=== PATIENT | male | born 1965 | race Caucasian/White ===

== ENCOUNTER 2018-12-06 17:03 | Inpatient (IN) | payer SELFPAY ==
[~2018-12-06] VITALS: Ht 190.5 cm; Wt 126.6 kg
[~2018-12-06 17:03] MED LIST: BUPIVACAINE /PF 0.75% 10 ML VIAL INJ ONE; MIDAZOLAM HCL 5 MG/5 ML VIAL IVP ONE; MORPHINE SULFATE 10MG/10ML PF AMP EP ONE; NS 1000 ML IV.SOLN IV ONE; NS IRRIG SOLN 1000 ML IR ONE
[2018-12-06 17:20] VITALS: BP_SYST 205
[2018-12-06] MEDS ORDERED: INSULIN REGULAR, HUMAN 10 UNITS/0.1 ML INJ IVP ONE (18:15)
[2018-12-06] MEDS ORDERED: NS 1000 ML IV.SOLN IV ONE (18:15)
[2018-12-06] MEDS ORDERED: cefTRIAXone 1 GM in LIDOCAINE 1%, 20 ML MDV 2.1 ML IM ONE (18:30)
[2018-12-06] MEDS ORDERED: metroNIDAZOLE 500 mg/NS 100 ML IV ONE (18:30)
[2018-12-06 18:36] LABS: HEMOGLOBIN 14.1 g/dL (14.0-18.0); MEAN CORPUSCULAR HEMOGLOBIN 30 pg (27-31); MEAN CORPUSCULAR HGB CONC 34 % (32-36); MEAN CORPUSCULAR VOLUME 89 fL (79.0-98.0); PLATELET COUNT (AUTO) 414 K/uL (130-430); RED CELL DISTRIBUTION WIDTH 12.5 % (9.0-15.0); WHITE BLOOD COUNT (AUTO) 14.3 K/uL (4.8-10.8)
[2018-12-06 18:37] LABS: BASOPHILS # (AUTO) 0.1 K/uL (0.0-0.2); BASOPHILS % (AUTO) 0.8 % (0.0-2.0); EOSINOPHILS # (AUTO) 0.1 K/uL (0.0-0.4); EOSINOPHILS % (AUTO) 0.9 % (0.0-4.0); LYMPHOCYTES # (AUTO) 1.8 K/uL (1.0-5.5); LYMPHOCYTES % (AUTO) 12.8 % (20.5-51.5); MONOCYTES # (AUTO) 1.2 K/uL (0.0-1.0); MONOCYTES % (AUTO) 8.3 % (1.7-9.3); NEUTROPHILS # (AUTO) 11.1 K/uL (1.8-7.7); NEUTROPHILS % (AUTO) 77.2 % (40.0-70.0)
[2018-12-06] MEDS ORDERED: cefTRIAXone 1 GM IVPB PREMIX 50 ML IV ONE (19:00)
[2018-12-06 19:15] LABS: CALCIUM 9.8 mg/dL (8.4-11.0); CREATININE 1.01 mg/dL (0.55-1.30); POTASSIUM 4.5 mmol/L (3.5-5.1)
[2018-12-06 19:25] LABS: INR 0.9 (0.80-1.20); PROTHROMBIN TIME 9.4 SECS (9.5-12.5)
[2018-12-06 19:30] LABS: ALBUMIN 2.6 g/dL (3.4-4.8); TOTAL BILIRUBIN 0.4 mg/dL (0.0-1.0)
[2018-12-06 20:54] LABS: BILIRUBIN,URINE NEGATIVE (NEGATIVE); CLARITY/URINE CLEAR (CLEAR); COLOR,URINE YELLOW (YELLOW); GLUCOSE,URINE 3+ (NEGATIVE); KETONES,URINE 2+ (NEGATIVE); LEUKOCYTE ESTERASE ,URINE NEGATIVE (NEGATIVE); NITRITE, URINE NEGATIVE (NEGATIVE); PROTEIN URINE 1+ (NEGATIVE); UROBILINOGEN,URINE 0.2 (0.2-1.0)
[2018-12-06 20:56] LABS: BLOOD, URINE TRACE (NEGATIVE)
[2018-12-06 21:06] LABS: BACTERIA,URINE FEW /HPF (None Seen); MUCUS,URINE None Seen /LPF (None Seen); RBC,URINE 0-3 /HPF (0-3); WBC,URINE 0-3 /HPF (0-3)
[2018-12-06 22:37] VITALS: BP_SYST 165
[2018-12-06] MEDS ORDERED: D5W 1,000 ML IV PRN (22:47)
[2018-12-06] MEDS ORDERED: DEXTROSE 50% JECT 50 ML DISP.SYRIN IVP PRN (23:00)
[2018-12-06] MEDS ORDERED: GLUCOSE 15 GM GEL (in 37.5 GM TUBE) PO PRN (23:00)
[2018-12-06] MEDS ORDERED: HYDROcodone/ACETAMIN 10-325 MG TAB PO PRN (23:00)
[2018-12-06] MEDS ORDERED: LORazepam 2 MG/ML VIAL IVP PRN (23:00)
[2018-12-07] MEDS: ACETAMINOPHEN 325 MG TABLET PO PRN ×5 (00:59→22:04)
[2018-12-07] MEDS: NORMAL SALINE 5 ML DISP.SYRIN IVF SCH ×3 (06:15→22:04)
[2018-12-07] MEDS: INSULIN REGULAR, HUMAN 100 UNITS/ML, 10 ML VIAL (novoLIN R) SUBCUT PRN ×4 (06:20→22:18)
[2018-12-07 06:48] LABS: CALCIUM 8.4 mg/dL (8.4-11.0); CREATININE 0.91 mg/dL (0.55-1.30); POTASSIUM 4.3 mmol/L (3.5-5.1)
[2018-12-07 06:58] LABS: ALBUMIN 2.1 g/dL (3.4-4.8); PHOSPHORUS 3.1 mg/dL (2.7-4.5); TOTAL BILIRUBIN 0.5 mg/dL (0.0-1.0)
[2018-12-07 07:53] LABS: HEMATOCRIT 37.2 % (36-54); HEMOGLOBIN 12.4 g/dL (14.0-18.0); MEAN CORPUSCULAR HEMOGLOBIN 30 pg (27-31); MEAN CORPUSCULAR VOLUME 89 fL (79.0-98.0); RED BLOOD CELL COUNT(AUTO) 4.17 MIL/uL (4.2-6.2); WHITE BLOOD COUNT (AUTO) 12.9 K/uL (4.8-10.8)
[2018-12-07 07:54] LABS: BASOPHILS % (AUTO) 0.4 % (0.0-2.0); EOSINOPHILS # (AUTO) 0.1 K/uL (0.0-0.4); EOSINOPHILS % (AUTO) 0.6 % (0.0-4.0); LYMPHOCYTES # (AUTO) 1.4 K/uL (1.0-5.5); LYMPHOCYTES % (AUTO) 10.5 % (20.5-51.5); MEAN CORPUSCULAR HGB CONC 33 % (32-36); MONOCYTES # (AUTO) 1.1 K/uL (0.0-1.0); MONOCYTES % (AUTO) 8.2 % (1.7-9.3); NEUTROPHILS # (AUTO) 10.4 K/uL (1.8-7.7); NEUTROPHILS % (AUTO) 80.3 % (40.0-70.0); PLATELET COUNT (AUTO) 376 K/uL (130-430); RED CELL DISTRIBUTION WIDTH 12.5 % (9.0-15.0)
[2018-12-07 08:00] VITALS: BP_SYST 167
[2018-12-07] MEDS ORDERED: METOPROLOL SUCCINATE 25 MG TAB.SR.24H (TOPROL XL) PO ONE (09:30)
[2018-12-07 12:50] VITALS: BP_SYST 164
[2018-12-07 12:55] VITALS: BP_SYST 163
[2018-12-07] MEDS: HYDROCHLOROTHIAZIDE 25 MG TABLET (HCTZ) PO SCH (13:00)
[2018-12-07] MEDS ORDERED: HYDROCHLOROTHIAZIDE 25 MG TABLET (HCTZ) PO ONE (14:00)
[2018-12-07] MEDS ORDERED: DIATR MEGLU/DIATRIZ SOD 30 ML SOLUTION PO ONE (15:16)
[2018-12-07 16:39] VITALS: BP_SYST 160
[2018-12-07] MEDS: cefTRIAXone 1 GM IVPB PREMIX 50 ML IV SCH (17:33)
[2018-12-07] MEDS: VANCOMYCIN HCL 1,500 MG in NS 500 ML IV SCH ×2 (18:30→23:42)
[2018-12-07 20:20] VITALS: BP_SYST 164
[2018-12-07] MEDS: METOPROLOL SUCCINATE 25 MG TAB.SR.24H (TOPROL XL) PO SCH (22:03)
[2018-12-07] MEDS: cloNIDine HCL 0.1 MG TABLET PO PRN (23:41)
[2018-12-07 23:42] VITALS: BP_SYST 162
[2018-12-08] VITALS (7 sets, daily range): BP systolic 131–165
[2018-12-08] MEDS: ACETAMINOPHEN 325 MG TABLET PO PRN ×4 (03:16→22:15)
[2018-12-08] MEDS: NORMAL SALINE 5 ML DISP.SYRIN IVF SCH ×3 (06:33→21:06)
[2018-12-08] MEDS: INSULIN REGULAR, HUMAN 100 UNITS/ML, 10 ML VIAL (novoLIN R) SUBCUT PRN ×4 (06:33→20:57)
[2018-12-08 06:47] LABS: CALCIUM 8.5 mg/dL (8.4-11.0); CREATININE 0.91 mg/dL (0.55-1.30); POTASSIUM 3.8 mmol/L (3.5-5.1); TOTAL BILIRUBIN 0.4 mg/dL (0.0-1.0); VANCOMYCIN,TROUGH 20.6 ug/mL (5.0-10.0)
[2018-12-08 07:08] LABS: C-REACTIVE PROTEIN QUANT 22.6 mg/dL (0-0.5)
[2018-12-08 07:32] LABS: BASOPHILS % (AUTO) 0.5 % (0.0-2.0); EOSINOPHILS % (AUTO) 0.8 % (0.0-4.0); HEMATOCRIT 37.5 % (36-54); HEMOGLOBIN 12.8 g/dL (14.0-18.0); LYMPHOCYTES # (AUTO) 1.6 K/uL (1.0-5.5); LYMPHOCYTES % (AUTO) 11.5 % (20.5-51.5); MEAN CORPUSCULAR HEMOGLOBIN 30 pg (27-31); MEAN CORPUSCULAR HGB CONC 34 % (32-36); MEAN CORPUSCULAR VOLUME 88 fL (79.0-98.0); MONOCYTES % (AUTO) 8.1 % (1.7-9.3); NEUTROPHILS # (AUTO) 11.1 K/uL (1.8-7.7); NEUTROPHILS % (AUTO) 79.1 % (40.0-70.0); PLATELET COUNT (AUTO) 384 K/uL (130-430); RED BLOOD CELL COUNT(AUTO) 4.27 MIL/uL (4.2-6.2); RED CELL DISTRIBUTION WIDTH 12.5 % (9.0-15.0); WHITE BLOOD COUNT (AUTO) 14.1 K/uL (4.8-10.8)
[2018-12-08 07:33] LABS: BASOPHILS # (AUTO) 0.1 K/uL (0.0-0.2); EOSINOPHILS # (AUTO) 0.1 K/uL (0.0-0.4); MONOCYTES # (AUTO) 1.1 K/uL (0.0-1.0)
[2018-12-08] MEDS ORDERED: NACL 0.9% 1,000 ML IV ONE (08:15)
[2018-12-08] MEDS: METOPROLOL SUCCINATE 25 MG TAB.SR.24H (TOPROL XL) PO SCH ×2 (08:23→20:50)
[2018-12-08] MEDS: HYDROCHLOROTHIAZIDE 25 MG TABLET (HCTZ) PO SCH (08:24)
[2018-12-08 08:53] LABS: ERYTHROCYTE SEDIMENTATION RATE 92 MM/HR (0-15)
[2018-12-08] MEDS ORDERED: metFORMIN HCL 500 MG TABLET PO ONE (09:00)
[2018-12-08] MEDS: PIOGLITAZONE HCL 15 MG TABLET PO SCH (09:44)
[2018-12-08] MEDS: VANCOMYCIN HCL 1,500 MG in NS 500 ML IV SCH ×3 (10:07→23:56)
[2018-12-08] MEDS: cloNIDine HCL 0.1 MG TABLET PO PRN (11:56)
[2018-12-08] MEDS: cefTRIAXone 1 GM IVPB PREMIX 50 ML IV SCH (17:00)
[2018-12-08] MEDS: metFORMIN HCL 500 MG TABLET PO SCH (17:00)
[2018-12-08] MEDS ORDERED: 0.45% NS 250 ML IV ONE (18:45)
[2018-12-08] MEDS: LISINOPRIL 10 MG TABLET (PRINIVIL) PO SCH (20:51)
[2018-12-08] MEDS: INSULIN GLARGINE 100 UNITS/ML 10 ML VIAL SUBCUT SCH ×2 (20:55→21:00)
[2018-12-09] MEDS: ACETAMINOPHEN 325 MG TABLET PO PRN (04:28)
[2018-12-09] MEDS: NORMAL SALINE 5 ML DISP.SYRIN IVF SCH ×2 (06:29→14:00)
[2018-12-09] MEDS: INSULIN REGULAR, HUMAN 100 UNITS/ML, 10 ML VIAL (novoLIN R) SUBCUT PRN ×5 (06:35→20:13)
[2018-12-09 07:13] LABS: CALCIUM 8.4 mg/dL (8.4-11.0); CREATININE 0.93 mg/dL (0.55-1.30); POTASSIUM 3.6 mmol/L (3.5-5.1)
[2018-12-09 07:38] LABS: HEMATOCRIT 36.4 % (36-54); HEMOGLOBIN 12.5 g/dL (14.0-18.0); RED BLOOD CELL COUNT(AUTO) 4.15 MIL/uL (4.2-6.2); WHITE BLOOD COUNT (AUTO) 12.7 K/uL (4.8-10.8)
[2018-12-09 07:39] LABS: BASOPHILS # (AUTO) 0.1 K/uL (0.0-0.2); BASOPHILS % (AUTO) 0.5 % (0.0-2.0); EOSINOPHILS # (AUTO) 0.2 K/uL (0.0-0.4); EOSINOPHILS % (AUTO) 1.4 % (0.0-4.0); LYMPHOCYTES # (AUTO) 1.9 K/uL (1.0-5.5); LYMPHOCYTES % (AUTO) 15.2 % (20.5-51.5); MEAN CORPUSCULAR HEMOGLOBIN 30 pg (27-31); MEAN CORPUSCULAR HGB CONC 34 % (32-36); MEAN CORPUSCULAR VOLUME 88 fL (79.0-98.0); MONOCYTES # (AUTO) 0.9 K/uL (0.0-1.0); MONOCYTES % (AUTO) 7.5 % (1.7-9.3); NEUTROPHILS # (AUTO) 9.5 K/uL (1.8-7.7); NEUTROPHILS % (AUTO) 75.4 % (40.0-70.0); PLATELET COUNT (AUTO) 385 K/uL (130-430); RED CELL DISTRIBUTION WIDTH 12.8 % (9.0-15.0)
[2018-12-09 07:40] LABS: C-REACTIVE PROTEIN QUANT 15.4 mg/dL (0-0.5)
[2018-12-09] MEDS: VANCOMYCIN HCL 1,500 MG in NS 500 ML IV SCH ×2 (07:59→16:09)
[2018-12-09] MEDS: metFORMIN HCL 500 MG TABLET PO SCH ×2 (08:00→17:30)
[2018-12-09] MEDS: PIOGLITAZONE HCL 15 MG TABLET PO SCH (08:03)
[2018-12-09] MEDS: HYDROCHLOROTHIAZIDE 25 MG TABLET (HCTZ) PO SCH ×2 (08:04→08:06)
[2018-12-09] MEDS: LISINOPRIL 10 MG TABLET (PRINIVIL) PO SCH ×2 (08:04→08:13)
[2018-12-09] MEDS: METOPROLOL SUCCINATE 25 MG TAB.SR.24H (TOPROL XL) PO SCH ×2 (08:12→20:16)
[2018-12-09] MEDS: INSULIN GLARGINE 100 UNITS/ML 10 ML VIAL SUBCUT SCH (08:13)
[2018-12-09 09:11] LABS: ERYTHROCYTE SEDIMENTATION RATE 91 MM/HR (0-15)
[2018-12-09 12:07] VITALS: BP_SYST 157
[2018-12-09] MEDS ORDERED: DIPHENHYDRAMINE INJ 50 MG/ML VIAL IVP PRN (13:00)
[2018-12-09] MEDS ORDERED: ONDANSETRON HCL 4 MG/2 ML VIAL IVP PRN ×2 (13:00)
[2018-12-09] MEDS ORDERED: KETOROLAC TROMETHAMINE 60 MG/2 ML VIAL IM PRN (13:00)
[2018-12-09] MEDS ORDERED: NALOXONE HCL 0.4 MG/ML AMP (NARCAN) IVP PRN ×2 (13:00)
[2018-12-09] MEDS ORDERED: NALBUPHINE HCL 10 MG/ML AMP IVP PRN (13:00)
[2018-12-09] MEDS ORDERED: fentaNYL CITRATE/PF 100 MCG/2 ML AMP IVP PRN ×2 (13:00)
[2018-12-09] MEDS ORDERED: MORPHINE SULFATE 10MG/10ML PF AMP SP SCH (13:00)
[2018-12-09] MEDS ORDERED: INSULIN REGULAR, HUMAN 100 UNITS/ML, 10 ML VIAL IVP ONE (13:30)
[2018-12-09] MEDS ORDERED: INSULIN REGULAR, HUMAN 100 UNITS/ML, 10 ML VIAL SUBCUT ONE (13:30)
[2018-12-09 13:50] VITALS: BP_SYST 111
[2018-12-09 14:00] VITALS: BP_SYST 111
[2018-12-09 15:40] VITALS: BP_SYST 132
[2018-12-09] MEDS: INSULIN Aspart Prota/Aspar MIX 70-30, 100 UNITS/ML, 10 ML VIAL SUBCUT SCH (17:39)
[2018-12-09 19:10] VITALS: BP_SYST 138
[2018-12-09] MEDS: cefTRIAXone 1 GM IVPB PREMIX 50 ML IV SCH (20:02)
[2018-12-09 23:31] VITALS: BP_SYST 146
[2018-12-10] MEDS: VANCOMYCIN HCL 1,500 MG in NS 500 ML IV SCH ×2
[2018-12-10] MEDS: NORMAL SALINE 5 ML DISP.SYRIN IVF SCH ×4 (00:01→22:17)
[2018-12-10] MEDS: INSULIN REGULAR, HUMAN 100 UNITS/ML, 10 ML VIAL (novoLIN R) SUBCUT PRN ×2 (06:07→12:18)
[2018-12-10] MEDS: INSULIN Aspart Prota/Aspar MIX 70-30, 100 UNITS/ML, 10 ML VIAL SUBCUT SCH (06:09)
[2018-12-10 07:20] LABS: POTASSIUM 3.7 mmol/L (3.5-5.1)
[2018-12-10 07:21] LABS: ALBUMIN 1.9 g/dL (3.4-4.8); CALCIUM 8.3 mg/dL (8.4-11.0); CREATININE 0.96 mg/dL (0.55-1.30); HEMATOCRIT 37.4 % (36-54); HEMOGLOBIN 12.6 g/dL (14.0-18.0); RED BLOOD CELL COUNT(AUTO) 4.26 MIL/uL (4.2-6.2); TOTAL BILIRUBIN 0.4 mg/dL (0.0-1.0); WHITE BLOOD COUNT (AUTO) 15.1 K/uL (4.8-10.8)
[2018-12-10 07:22] LABS: C-REACTIVE PROTEIN QUANT 12.1 mg/dL (0-0.5); EOSINOPHILS % (AUTO) 0.8 % (0.0-4.0); LYMPHOCYTES % (AUTO) 11.3 % (20.5-51.5); MEAN CORPUSCULAR HEMOGLOBIN 30 pg (27-31); MEAN CORPUSCULAR HGB CONC 34 % (32-36); MEAN CORPUSCULAR VOLUME 88 fL (79.0-98.0); MONOCYTES % (AUTO) 7.6 % (1.7-9.3); NEUTROPHILS % (AUTO) 79.7 % (40.0-70.0); PLATELET COUNT (AUTO) 412 K/uL (130-430); RED CELL DISTRIBUTION WIDTH 12.6 % (9.0-15.0)
[2018-12-10 07:23] LABS: BASOPHILS % (AUTO) 0.6 % (0.0-2.0)
[2018-12-10 07:25] LABS: BASOPHILS # (AUTO) 0.1 K/uL (0.0-0.2); EOSINOPHILS # (AUTO) 0.1 K/uL (0.0-0.4); LYMPHOCYTES # (AUTO) 1.7 K/uL (1.0-5.5); MONOCYTES # (AUTO) 1.1 K/uL (0.0-1.0)
[2018-12-10 07:55] VITALS: BP_SYST 141
[2018-12-10] MEDS: PIOGLITAZONE HCL 15 MG TABLET PO SCH (08:36)
[2018-12-10] MEDS: HYDROCHLOROTHIAZIDE 25 MG TABLET (HCTZ) PO SCH (08:37)
[2018-12-10] MEDS: LISINOPRIL 10 MG TABLET (PRINIVIL) PO SCH (08:37)
[2018-12-10] MEDS: metFORMIN HCL 500 MG TABLET PO SCH ×2 (08:38→17:39)
[2018-12-10] MEDS: METOPROLOL SUCCINATE 25 MG TAB.SR.24H (TOPROL XL) PO SCH ×2 (08:39→22:10)
[2018-12-10] MEDS: VANCOMYCIN HCL 1,500 MG in NS 250 ML IV SCH ×3 (08:40→23:11)
[2018-12-10 09:33] LABS: ERYTHROCYTE SEDIMENTATION RATE 91 MM/HR (0-15)
[2018-12-10 12:36] VITALS: BP_SYST 136
[2018-12-10] MEDS: ACETAMINOPHEN 325 MG TABLET PO PRN (13:30)
[2018-12-10] MEDS ORDERED: DEXTROSE 50% JECT 50 ML DISP.SYRIN IVP PRN (15:30)
[2018-12-10 16:13] VITALS: BP_SYST 125
[2018-12-10] MEDS: INSULIN LISPRO SLIDING SCALE 100 UNITS/ML VIAL (humaLOG) SUBCUT PRN ×2 (17:53→22:17)
[2018-12-10] MEDS: cefTRIAXone 1 GM IVPB PREMIX 50 ML IV SCH (18:28)
[2018-12-10] MEDS ORDERED: INSULIN NPH/REGULAR 70-30, 100 UNITS/ML, 10 ML VIAL SUBCUT ONE (18:45)
[2018-12-10] MEDS: HYDROcodone/ACETAMIN 5-325 MG TAB (NORCO/ VICODIN) PO PRN ×2 (19:06→23:11)
[2018-12-10 20:08] VITALS: BP_SYST 137
[2018-12-11 01:01] VITALS: BP_SYST 121
[2018-12-11] MEDS: HYDROcodone/ACETAMIN 5-325 MG TAB (NORCO/ VICODIN) PO PRN ×2 (03:25→08:22)
[2018-12-11] MEDS: NORMAL SALINE 5 ML DISP.SYRIN IVF SCH ×3 (06:39→21:36)
[2018-12-11] MEDS: INSULIN LISPRO SLIDING SCALE 100 UNITS/ML VIAL (humaLOG) SUBCUT PRN ×4 (06:43→21:36)
[2018-12-11] MEDS ORDERED: INSULIN NPH/REGULAR 70-30, 100 UNITS/ML, 10 ML VIAL SUBCUT SCH (07:00)
[2018-12-11 07:01] LABS: MEAN CORPUSCULAR HEMOGLOBIN 30 pg (27-31); MEAN CORPUSCULAR HGB CONC 34 % (32-36); MEAN CORPUSCULAR VOLUME 88 fL (79.0-98.0); WHITE BLOOD COUNT (AUTO) 10.5 K/uL (4.8-10.8)
[2018-12-11 07:02] LABS: PLATELET COUNT (AUTO) 405 K/uL (130-430); RED CELL DISTRIBUTION WIDTH 12.5 % (9.0-15.0)
[2018-12-11 07:03] LABS: CALCIUM 8.6 mg/dL (8.4-11.0); CREATININE 0.92 mg/dL (0.55-1.30); POTASSIUM 3.4 mmol/L (3.5-5.1)
[2018-12-11 07:05] LABS: BASOPHILS % (AUTO) 0.6 % (0.0-2.0); EOSINOPHILS % (AUTO) 1.9 % (0.0-4.0); LYMPHOCYTES % (AUTO) 16.4 % (20.5-51.5); MONOCYTES % (AUTO) 9.6 % (1.7-9.3); NEUTROPHILS % (AUTO) 71.5 % (40.0-70.0)
[2018-12-11 07:06] LABS: LYMPHOCYTES # (AUTO) 1.7 K/uL (1.0-5.5); NEUTROPHILS # (AUTO) 7.5 K/uL (1.8-7.7)
[2018-12-11 07:07] LABS: BASOPHILS # (AUTO) 0.1 K/uL (0.0-0.2); EOSINOPHILS # (AUTO) 0.2 K/uL (0.0-0.4)
[2018-12-11 07:16] LABS: C-REACTIVE PROTEIN QUANT 13.2 mg/dL (0-0.5)
[2018-12-11 07:28] VITALS: BP_SYST 151
[2018-12-11 07:52] VITALS: BP_SYST 151
[2018-12-11 08:01] LABS: ERYTHROCYTE SEDIMENTATION RATE 95 MM/HR (0-15)
[2018-12-11] MEDS: metFORMIN HCL 500 MG TABLET PO SCH ×2 (08:06→17:45)
[2018-12-11] MEDS: VANCOMYCIN HCL 1,500 MG in NS 250 ML IV SCH ×2 (08:07→16:34)
[2018-12-11] MEDS: PIOGLITAZONE HCL 15 MG TABLET PO SCH (09:58)
[2018-12-11] MEDS: HYDROCHLOROTHIAZIDE 25 MG TABLET (HCTZ) PO SCH (09:59)
[2018-12-11] MEDS: LISINOPRIL 10 MG TABLET (PRINIVIL) PO SCH (10:00)
[2018-12-11] MEDS: METOPROLOL SUCCINATE 25 MG TAB.SR.24H (TOPROL XL) PO SCH ×2 (10:00→21:24)
[2018-12-11 12:01] VITALS: BP_SYST 137
[2018-12-11] MEDS ORDERED: POTASSIUM CHLORIDE 20 MEQ TAB.PRT.SR PO ONE (12:15)
[2018-12-11] MEDS: cefTRIAXone 1 GM IVPB PREMIX 50 ML IV SCH (17:46)
[2018-12-11] MEDS: INSULIN NPH/REGULAR 70-30, 100 UNITS/ML, 10 ML VIAL SUBCUT SCH (17:50)
[2018-12-11 18:00] VITALS: BP_SYST 142
[2018-12-11 20:00] VITALS: BP_SYST 140
[2018-12-11] MEDS: VANCOMYCIN HCL 2,000 MG in NS 500 ML IV SCH (21:25)
[2018-12-12 00:27] VITALS: BP_SYST 148
[2018-12-12] MEDS: HYDROcodone/ACETAMIN 5-325 MG TAB (NORCO/ VICODIN) PO PRN ×2 (04:56→09:56)
[2018-12-12] MEDS: INSULIN LISPRO SLIDING SCALE 100 UNITS/ML VIAL (humaLOG) SUBCUT PRN ×3 (06:09→21:00)
[2018-12-12] MEDS: INSULIN NPH/REGULAR 70-30, 100 UNITS/ML, 10 ML VIAL SUBCUT SCH ×2 (06:11→17:22)
[2018-12-12] MEDS: NORMAL SALINE 5 ML DISP.SYRIN IVF SCH ×3 (06:11→21:01)
[2018-12-12 06:53] LABS: C-REACTIVE PROTEIN QUANT 7.8 mg/dL (0-0.5); CALCIUM 8.6 mg/dL (8.4-11.0); CREATININE 0.97 mg/dL (0.55-1.30); POTASSIUM 3.2 mmol/L (3.5-5.1)
[2018-12-12 07:42] LABS: HEMATOCRIT 35.9 % (36-54); HEMOGLOBIN 12.4 g/dL (14.0-18.0); MEAN CORPUSCULAR HEMOGLOBIN 30 pg (27-31); MEAN CORPUSCULAR HGB CONC 35 % (32-36); MEAN CORPUSCULAR VOLUME 87 fL (79.0-98.0); PLATELET COUNT (AUTO) 438 K/uL (130-430); RED BLOOD CELL COUNT(AUTO) 4.13 MIL/uL (4.2-6.2); RED CELL DISTRIBUTION WIDTH 12.8 % (9.0-15.0); WHITE BLOOD COUNT (AUTO) 10.3 K/uL (4.8-10.8)
[2018-12-12 07:43] LABS: BASOPHILS # (AUTO) 0.1 K/uL (0.0-0.2); BASOPHILS % (AUTO) 0.6 % (0.0-2.0); EOSINOPHILS # (AUTO) 0.2 K/uL (0.0-0.4); EOSINOPHILS % (AUTO) 2.1 % (0.0-4.0); LYMPHOCYTES # (AUTO) 1.4 K/uL (1.0-5.5); MONOCYTES % (AUTO) 9.8 % (1.7-9.3); NEUTROPHILS # (AUTO) 7.5 K/uL (1.8-7.7); NEUTROPHILS % (AUTO) 73.5 % (40.0-70.0)
[2018-12-12 08:03] VITALS: BP_SYST 136
[2018-12-12] MEDS: METOPROLOL SUCCINATE 25 MG TAB.SR.24H (TOPROL XL) PO SCH ×2 (08:15→20:58)
[2018-12-12] MEDS: PIOGLITAZONE HCL 15 MG TABLET PO SCH (08:15)
[2018-12-12] MEDS: metFORMIN HCL 500 MG TABLET PO SCH ×2 (08:15→17:24)
[2018-12-12] MEDS: LISINOPRIL 10 MG TABLET (PRINIVIL) PO SCH (08:16)
[2018-12-12] MEDS: HYDROCHLOROTHIAZIDE 25 MG TABLET (HCTZ) PO SCH (08:16)
[2018-12-12 08:33] VITALS: BP_SYST 148
[2018-12-12 08:40] LABS: ERYTHROCYTE SEDIMENTATION RATE 95 MM/HR (0-15)
[2018-12-12] MEDS: VANCOMYCIN HCL 2,000 MG in NS 500 ML IV SCH (09:05)
[2018-12-12 12:49] VITALS: BP_SYST 133
[2018-12-12] MEDS: ACETAMINOPHEN 325 MG TABLET PO PRN (16:21)
[2018-12-12 16:49] VITALS: BP_SYST 149
[2018-12-12] MEDS: cefTRIAXone 1 GM IVPB PREMIX 50 ML IV SCH (17:16)
[2018-12-12] MEDS ORDERED: POTASSIUM CHLORIDE 20 MEQ TAB.PRT.SR PO ONE (18:00)
[2018-12-12 20:00] VITALS: BP_SYST 110
[2018-12-13 00:31] VITALS: BP_SYST 129
[2018-12-13] MEDS: INSULIN NPH/REGULAR 70-30, 100 UNITS/ML, 10 ML VIAL SUBCUT SCH ×2 (06:23→16:59)
[2018-12-13] MEDS: INSULIN LISPRO SLIDING SCALE 100 UNITS/ML VIAL (humaLOG) SUBCUT PRN ×2 (06:24→17:02)
[2018-12-13] MEDS: ACETAMINOPHEN 325 MG TABLET PO PRN (06:26)
[2018-12-13 07:03] LABS: CALCIUM 8.8 mg/dL (8.4-11.0); CREATININE 1.12 mg/dL (0.55-1.30); POTASSIUM 3.6 mmol/L (3.5-5.1)
[2018-12-13] MEDS: NORMAL SALINE 5 ML DISP.SYRIN IVF SCH ×2 (07:05→14:35)
[2018-12-13 07:20] LABS: HEMATOCRIT 35.6 % (36-54); HEMOGLOBIN 12.6 g/dL (14.0-18.0); MEAN CORPUSCULAR HEMOGLOBIN 30 pg (27-31); MEAN CORPUSCULAR HGB CONC 35 % (32-36); MEAN CORPUSCULAR VOLUME 86 fL (79.0-98.0); RED BLOOD CELL COUNT(AUTO) 4.15 MIL/uL (4.2-6.2); WHITE BLOOD COUNT (AUTO) 10.4 K/uL (4.8-10.8)
[2018-12-13 07:21] LABS: BASOPHILS % (AUTO) 0.7 % (0.0-2.0); EOSINOPHILS % (AUTO) 1.4 % (0.0-4.0); LYMPHOCYTES # (AUTO) 1.7 K/uL (1.0-5.5); LYMPHOCYTES % (AUTO) 15.9 % (20.5-51.5); MONOCYTES % (AUTO) 11.2 % (1.7-9.3); NEUTROPHILS # (AUTO) 7.3 K/uL (1.8-7.7); NEUTROPHILS % (AUTO) 70.8 % (40.0-70.0); PLATELET COUNT (AUTO) 462 K/uL (130-430); RED CELL DISTRIBUTION WIDTH 12.7 % (9.0-15.0)
[2018-12-13 07:22] LABS: BASOPHILS # (AUTO) 0.1 K/uL (0.0-0.2); EOSINOPHILS # (AUTO) 0.1 K/uL (0.0-0.4); MONOCYTES # (AUTO) 1.2 K/uL (0.0-1.0)
[2018-12-13 07:27] VITALS: BP_SYST 115
[2018-12-13 08:11] LABS: ERYTHROCYTE SEDIMENTATION RATE 94 MM/HR (0-15)
[2018-12-13] MEDS: metFORMIN HCL 500 MG TABLET PO SCH ×2 (08:29→18:17)
[2018-12-13] MEDS: METOPROLOL SUCCINATE 25 MG TAB.SR.24H (TOPROL XL) PO SCH (08:29)
[2018-12-13] MEDS: PIOGLITAZONE HCL 15 MG TABLET PO SCH (08:29)
[2018-12-13] MEDS: HYDROCHLOROTHIAZIDE 25 MG TABLET (HCTZ) PO SCH (08:30)
[2018-12-13] MEDS: LISINOPRIL 10 MG TABLET (PRINIVIL) PO SCH (08:30)
[2018-12-13 11:16] VITALS: BP_SYST 135
[2018-12-13] MEDS ORDERED: BALSAM PERU/CASTOR OIL 60 GM OINT...G. TP ONE (13:45)
[2018-12-13 16:38] VITALS: BP_SYST 127
[2018-12-13] MEDS: cefTRIAXone 1 GM IVPB PREMIX 50 ML IV SCH (17:04)
[2018-12-13] MEDS ORDERED: INSNPH7030 SUBCUT (18:11)
[2018-12-13] MEDS ORDERED: METO-540 PO (18:11)
[2018-12-13] MEDS ORDERED: GLU500 PO (18:11)
[2018-12-13] MEDS ORDERED: INSU100V SUBCUT (18:11)
[2018-12-13] MEDS ORDERED: HCT25 PO (18:11)
[2018-12-13] MEDS ORDERED: PIOG15TA8 PO (18:11)
[2018-12-13] MEDS ORDERED: LISI10TA5 PO (18:11)
[2018-12-13] MEDS ORDERED: CLIN150C15 PO (18:25)
[2018-12-13] MEDS ORDERED: LEVO750T45 PO (18:26)
[2018-12-13 18:33] VITALS: BP_SYST 127
[2018-12-14] MEDS ORDERED: BALSAM PERU/CASTOR OIL 60 GM OINT...G. TP SCH (09:00)
== END 2018-12-13 19:18 | disposition home or self-care (01) | DRG 853 ==
LOC: SED 17:03 → SMU 22:30
PROVIDERS: ADMIT Preventive Medicine Preventive Medicine/Occupational Environmental Medicine; ATTEND Preventive Medicine Preventive Medicine/Occupational Environmental Medicine
PROC: 0JBC0ZZ Excision of Pelvic Region Subcutaneous Tissue and Fascia, Open Approach (ICD-10-PCS; principal; 2018-12-09 12:00)
DX: A41.01 Sepsis due to Methicillin susceptible Staphylococcus aureus (principal); K65.1 Peritoneal abscess; E72.20 Disorder of urea cycle metabolism, unspecified; E87.1 Hypo-osmolality and hyponatremia; L03.311 Cellulitis of abdominal wall; B37.89 Other sites of candidiasis; D64.9 Anemia, unspecified; E11.21 Type 2 diabetes mellitus with diabetic nephropathy; E11.22 Type 2 diabetes mellitus with diabetic chronic kidney disease; E11.65 Type 2 diabetes mellitus with hyperglycemia; E66.9 Obesity, unspecified; E83.52 Hypercalcemia; E87.6 Hypokalemia; E88.09 Other disorders of plasma-protein metabolism, not elsewhere classified; I13.10 Hypertensive heart and chronic kidney disease without heart failure, with stage 1 through stage 4 chronic kidney disease, or unspecified chronic kidney disease; B96.89 Other specified bacterial agents as the cause of diseases classified elsewhere; D47.3 Essential (hemorrhagic) thrombocythemia; N18.9 Chronic kidney disease, unspecified; Z79.4 Long term (current) use of insulin; Z83.3 Family history of diabetes mellitus; Z91.14 Patient's other noncompliance with medication regimen; Z68.34 Body mass index [BMI] 34.0-34.9, adult
CPT/HCPCS: 36415; 71045; 80048; 80053; 80202-TC; 81000-TC; 82948; 82962; 83605; 83735-TC; 84100-TC; 84484; 85025; 85610-TC; 85651-TC; 85730-TC; 86140; 87040-TC; 87070; 87070-TC; 87075-TC; 87081; 87086; 87186-TC; 88304; 88305; 93005; 94010; 94760; 96360; 96372; 99285; J0696; J1815; J1885; J2250; J2274; J3370; J3490; J7030; J7040; J7050; J7060; Q9964